=== PATIENT | male | born 1950 | race Caucasian/White ===

== ENCOUNTER → 2018-11-12 | Day surgery (SDC) | payer MEDICARE, OTHER ==
[~2018-11-12] MED LIST: ACTOS15 MG OR; ASPIRIN325 MG PO; AUGMENTIN875TAB PO; BENICAR HCT1 TA1 PO; CELEBREX100 M1 PO; CELEBREX200 MG OR; CIPRO500 MG PO; DEBROX6.5 % AD; ESOMEPRAZOLE MA40 MG PO; FENOFIBRATE145 MG PO; FLONASE NASAL50 MCG; GABAPENTIN300 MG PO; HYDROCHLOROT12.5 MG OR; LIPITOR20 M1 PO; LISINOPRIL10 MG PO; LISINOPRIL20 MG PO; LORTAB 5 OR; LORTAB 5 PO; METFORMIN HCL1000 MG PO; METFORMIN500 MG PO; MUCINEX600 MG PO; NAPROSYN500 MG OR; NEURONTIN300 MG OR; NEURONTIN400 MG PO; NEXIUM20 M1 PO; NEXIUM40 M1 OR; NEXIUM40 M1 PO; NORVASC PO; NORVASC5 M1 PO; RESTORIL15 MG OR; RESTORIL30 MG OR; SKELAXIN800 MG PO; TEMAZEPAM30 MG PO; TRICOR145 MG OR; TRICOR145 MG PO; ZESTRIL OR; ZESTRIL PO; ZESTRIL/PRI10 MG/TAB PO; ZETIA10 MG OR; ZETIA10 MG PO
[2018-11-12 11:04] VITALS: BP 114/68
== END | disposition home or self-care (01) ==
LOC: ENDO 08:00
PROVIDERS: ATTEND Surgery
PROC: 0DJD8ZZ Inspection of Lower Intestinal Tract, Via Natural or Artificial Opening Endoscopic (ICD-10-PCS; principal; 2018-11-12)
DX: Z12.11 Encounter for screening for malignant neoplasm of colon (principal); I48.91 Unspecified atrial fibrillation; I10 Essential (primary) hypertension; Z86.010 Personal history of colon polyps

== ENCOUNTER 2022-11-07 08:27 | Day surgery (SDC) | payer MEDICARE, OTHER ==
[~2022-11-07] VITALS: Ht 177.8 cm; Wt 95.3 kg
[2022-11-07 10:16] VITALS: BP 121/65
== END 2022-11-07 10:30 | disposition home or self-care (01) ==
LOC: ENDO 08:27 → ORM 12:15
PROVIDERS: ATTEND Surgery
PROC: 0DBH8ZX Excision of Cecum, Via Natural or Artificial Opening Endoscopic, Diagnostic (ICD-10-PCS; principal; 2022-11-07)
PROC: 0DBN8ZX Excision of Sigmoid Colon, Via Natural or Artificial Opening Endoscopic, Diagnostic (ICD-10-PCS; 2022-11-07)
DX: Z12.11 Encounter for screening for malignant neoplasm of colon (principal); D12.0 Benign neoplasm of cecum; D12.5 Benign neoplasm of sigmoid colon; I10 Essential (primary) hypertension; I48.91 Unspecified atrial fibrillation; E78.5 Hyperlipidemia, unspecified; Z86.010 Personal history of colon polyps